=== PATIENT | male | born 1970 | race African-American/Black ===

== ENCOUNTER 2024-08-12 09:40 | Emergency (ER) | payer MEDICAID ==
[~2024-08-12] VITALS: Ht 185.4 cm; Wt 87.0 kg
[2024-08-12 09:48] VITALS: BP 187/117; PULSE 120; RESP 16; TEMP 37.3; O2SAT 100
[2024-08-12] MEDS ORDERED: LEVETIRACETAM 1000MG PREMIX 1,000 ML IV ONE (10:00)
[2024-08-12] MEDS ORDERED: SODIUM CHLORIDE 0.9% 1,000 ML IV ONE (10:30)
[2024-08-12 10:31] LABS: CHLORIDE 100 mEq/L (98-107); POTASSIUM 3.4 mEq/L (3.5-5.1); SODIUM 140 mEq/L (136-145)
[2024-08-12 10:32] LABS: CARBON DIOXIDE 19 mEq/L (21-32); HEMATOCRIT. 25.8 % (42.0-52.0); HEMOGLOBIN. 8.5 g/dL (14.0-18.0); MEAN CORPUSCULAR HEMOGLOBIN 32.8 pg (28.0-32.0); MEAN CORPUSCULAR HGB CONC 33.1 g/dL (31.0-37.0); MEAN PLATELET VOLUME 7.5 fl (7.4-10.4); PLATELET 173 x1000/uL (130-400); RED CELL DISTRIBUTION WIDTH 14.8 % (11.6-14.6); WHITE BLOOD COUNT 6.6 x1000/uL (4.5-11.0)
[2024-08-12 10:36] LABS: DIFFERENTIAL COMMENT 1
[2024-08-12 10:37] LABS: GLUCOSE 119 mg/dL (70-105); UREA NITROGEN BLOOD 99 mg/dL (9-23)
[2024-08-12 11:06] LABS: ETHANOL BLOOD < 10 mg/dL (<10)
[2024-08-12 11:31] LABS: PLATELET ESTIMATE NORMAL
== END 2024-08-12 11:35 | disposition left against medical advice (07) ==
LOC: EDBD 09:40 → ER 09:40
DX: R56.9 Unspecified convulsions (principal)
CPT/HCPCS: 80048; 80320; 85025; 36415; 99283; J7030; G0480